=== PATIENT | female | born 1990 | race Caucasian/White ===

== ENCOUNTER 2016-10-16 11:49 | Emergency (ER) | payer OTHER ==
[~2016-10-16] VITALS: Ht 167.6 cm; Wt 88.0 kg
[~2016-10-16 11:49] MED LIST: ADAL40KI SC; INSPMPNVLG; MULT-506 PO; VENL-273 PO
[2016-10-16 11:57] VITALS: TEMP 37.1; Ht 167.6 cm; Wt 88.0 kg
[2016-10-16] MEDS ORDERED: CLON0.5T3 PO (12:07)
[2016-10-16] MEDS ORDERED: FEXO1TAB46 PO (12:07)
[2016-10-16] MEDS ORDERED: SERT50TA PO (12:07)
[2016-10-16] MEDS ORDERED: BCPILLS PO (12:07)
[2016-10-16] MEDS ORDERED: TRAZ50TA35 PO (12:07)
--- NOTE | 2016-10-16 12:42 | DIAGNOSTIC IMAGING REPORT ---
RIGHT FINGER(S) MIN 2 VIEWS ROUTINE CLINICAL HISTORY: closed index finger in car window Right trauma COMPARISON: None. DISCUSSION: The bones and joint spaces appear intact. There is no evidence of fracture, dislocation or bony disease. There is no evidence for soft tissue swelling. IMPRESSION: Negative study. The above report was generated using voice recognition software. It may contain grammatical, syntax or spelling errors. Electronically signed by: Wili Wood M.D. 10/16/2016 12:41 PM Dictated Date/Time: 10/16/2016 12:40 PM
[2016-10-16 13:04] VITALS: BP 123/85; PULSE 75; O2SAT 97
--- NOTE | 2016-10-16 17:32 | EMERGENCY ROOM VISIT NOTE ---
ED Visit Note First contact with patient: 12:18 CHIEF COMPLAINT: Right index Finger injury HISTORY OF PRESENT ILLNESS: This 26-year-old white female patient injured her right index finger about an hour ago when it was accidentally closed in an electric car window. Right-hand dominant.. There was no audible snap or crack at that time. The patient is able to straighten and flex the finger completely but it is painful. No numbness or tingling. No other fingers are involved. No prior history of significant finger injury. No treatment yet. Pain is 5/10. Her accompanies her today. REVIEW OF SYSTEM: HEENT: No dizziness, visual problems, hearing loss, or tinnitus. There is no difficulty swallowing and no oral lesions are present. LYMPH: No adenopathy. PULMONARY: No cough, shortness of breath, sputum production or hemoptysis. CARDIOVASCULAR: No chest pain, palpitations, shortness of breath or peripheral edema. GASTROINTESTINAL: No diarrhea, constipation, nausea, vomiting, or abdominal pain. GENITOURINARY: No dysuria, frequency, urgency or nocturia. NEUROLOGIC: No weakness, muscle tenderness, epilepsy or history of neurological problems. MUSCULOSKELETAL: No history of joint tenderness/swelling. No history of arthritis or arthralgias. SKIN: No rashes or lesions. PSYCHIATRIC: No history of depression or mental illness. ENDOCRINE: No history of thyroid disorders, or abnormal hair growth. PMH: Supplemental sheet was reviewed and signed. Previous surgeries: None Medical history: Significant for history of diabetes, juvenile rheumatoid arthritis Allergies: Ceclor, sulfa Current medications: Reviewed and filed in patient's chart SOCIAL HISTORY: Patient lives at home with her fianc. no tobacco use, no EtOH use. Employed. Family history: Significant for diabetes, kidney stones, and colon cancer. Parents are living. PHYSICAL EXAM: Vital Signs: Afebrile. Reviewed and filed in patient's chart. General: Well-developed, well-nourished, young white female, in obvious discomfort. No acute distress. She is sitting on a bed. Alert and oriented. Skin: Warm and dry with good turgor. No rashes or lesions. No ecchymosis or erythema. The patient is not diaphoretic. Mild dorsal abrasions present at the middle and distal phalanx. Musculoskeletal: There is no deformity of the finger. The patient is able to extend and flex the index finger at the MCP, PIP , and DIP joints. FDS and FDP function were individually confirmed. The PIP joint is not tender and extension is full and strong there. The DIP joint area is not particularly swollen but is tender. Examination of the rest of the hand and fingers is benign. Neurologic: Gross sensation is intact across each of the digits by soft touch. Capillary refill is also equal for each of the digits. Data: An x-ray of the finger does not show a fracture; the bones are normal. This was read by radiology. DIAGNOSIS: Right index Finger contusion DISCHARGE INSTRUCTIONS: Patient was educated regarding today's findings. Conservative care measures were discussed. Ice and elevate intermittently over the next 3 days, and then use moist heat. Gentle motion daily. Tylenol and ibuprofen every 6 hours as needed for discomfort. Patient may angelita tape the finger to the next finger as a biologic splint if needed. Contusion handout was provided. She was offered an AlumaFoam splint. Patient declined. She was reassured that I do not suspect dislocation, tendon rupture, or ligament rupture. Problem List Medical Problems: (1) DIAB ART WO COMPL, TYPE II OR UNSPEC TYPE, NOT UNCNTRLD Status: Chronic (2) Hx-Sulfonamides Allergy Status: Chronic (3) Long-Term (Current) Use Of Insulin Status: Chronic Current/Historical Medications Scheduled Adalimumab (Humira Pen), 40 MG SC Q2WK Control Pills ( Control Pills), 1 TAB PO DAILY Insulin Aspart (novoLOG INSULIN PUMP ), 1 EA N/A UD Sertraline (Zoloft), 75 MG PO DAILY Trazodone Hcl (Trazodone), 50 MG PO DAILY Scheduled PRN Clonazepam (Klonopin), 0.5 MG PO DAILY PRN for Anxiety Fexofenadine Hcl (Ya), 180 MG PO DAILY PRN for ALLERGIC REACTION Allergies Coded Allergies: Cefaclor (Unverified Allergy, Unknown, HIVES, 10/16/16) Sulfa Drugs (Unverified Allergy, Unknown, HIVES, 10/16/16) Vital Signs Date Time Temp Pulse Resp B/P (MAP) Pulse Ox O2 Delivery O2 Flow Rate FiO2 10/16/16 13:04 75 18 123/85 97 10/16/16 11:57 37.1 93 20 142/90 96 Room Air Departure Information Impression Primary Impression: Finger contusion Dispostion Home / Self-Care Condition GOOD Forms WORK / SCHOOL INSTRUCTIONS, HOME CARE DOCUMENTATION FORM, MOTRIN USE, TYLENOL USE, IMPORTANT VISIT INFORMATION Patient Instructions My [facility] Additional Instructions Ice and elevate frequently to reduce pain and swelling Gentle motion daily Tylenol and Motrin every 6 hours as needed for discomfort Use a splint for protection if needed
== END 2016-10-16 13:06 | disposition home or self-care (01) ==
LOC: C.EDB 11:51 → C.EDD 13:06
DX: S60.021A Contusion of right index finger without damage to nail, initial encounter (principal); V48.4XXA Person boarding or alighting a car injured in noncollision transport accident, initial encounter; E11.9 Type 2 diabetes mellitus without complications; Z79.4 Long term (current) use of insulin; Z79.899 Other long term (current) drug therapy; Z88.2 Allergy status to sulfonamides; Z88.8 Allergy status to other drugs, medicaments and biological substances

== ENCOUNTER 2017-04-13 10:48 | Emergency (ER) | payer OTHER ==
[~2017-04-13] VITALS: Ht 167.6 cm; Wt 87.6 kg
[~2017-04-13 10:48] MED LIST changes: +BCPILLS PO; +CLON0.5T3 PO; +FEXO1TAB46 PO; -MULT-506 PO; +SERT50TA PO; +TRAZ50TA35 PO; -VENL-273 PO
[2017-04-13 10:51] VITALS: TEMP 36.8; Ht 167.6 cm; Wt 87.6 kg
[2017-04-13 12:16] LABS: INFLUENZA A PCR Neg for Influ A (NEG); INFLUENZA B PCR Neg for Influ B (NEG)
[2017-04-13 12:42] VITALS: BP 109/85; PULSE 66; O2SAT 95
--- NOTE | 2017-04-13 14:37 | EMERGENCY ROOM VISIT NOTE ---
History First contact with patient: 11:01 Chief Complaint: FLU LIKE SX Stated Complaint: FLU-LIKE FEVER, SORE THROAT, ACHES, COUGH, CONGEST History of Present Illness The patient is a 26 year old female who presents to the Emergency Room with complaints of flulike symptoms for the past 48 hours. The patient reports that she developed muscle aches initially. By yesterday, she had developed a sore throat and mild nonproductive cough. She has also noticed fatigue and nasal congestion. The patient developed a fever last night of 100F. When she awoke this morning, her temperature was 100.9F. The patient has taken Tylenol twice this morning. 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 The patient did receive her influenza immunization this past fall. She rates her overall discomfort a 6 out of 10. She denies any abdominal pain, urinary symptoms, diarrhea, headache or neck pain. The patient is a type 2 diabetes patient. She reports that her blood glucose levels have been running in a manageable range. Review of Systems 10 system review was performed and was negative except for pertinent positives and negatives as indicated in history of present illness Past Medical/Surgical History Medical Problems: (1) DIAB ART WO COMPL, TYPE II OR UNSPEC TYPE, NOT UNCNTRLD (2) Hx-Sulfonamides Allergy (3) Long-Term (Current) Use Of Insulin Family History FH: cancer FH: diabetes mellitus FH: kidney disease Social History Smoking Status: Never Smoker Alcohol Use: none Marital Status: single Housing Status: lives with roommate Occupation Status: employed Current/Historical Medications Scheduled Adalimumab (Humira Pen), 40 MG SC Q2WK Control Pills ( Control Pills), 1 TAB PO DAILY Insulin Aspart (novoLOG INSULIN PUMP ), 1 EA N/A UD Sertraline (Zoloft), 75 MG PO DAILY Trazodone Hcl (Trazodone), 50 MG PO DAILY Scheduled PRN Clonazepam (Klonopin), 0.5 MG PO DAILY PRN for Anxiety Fexofenadine Hcl (Ya), 180 MG PO DAILY PRN for ALLERGIC REACTION Physical Exam Vital Signs Date Time Temp Pulse Resp B/P (MAP) Pulse Ox O2 Delivery O2 Flow Rate FiO2 04/13/17 12:42 66 18 109/85 95 04/13/17 10:51 36.8 97 18 132/87 96 Room Air Physical Exam CONSTITUTIONAL: Healthy and well nourished. Alert and oriented X 3 with positive affect. She does not appear acutely toxic. HEENT: Normocephalic, atraumatic. Pupils equal, round and reactive. Ears and nares are clear except for mild clear rhinorrhea. No scleral icterus or conjunctival injection/pallor. OROPHARYNX: Minimal posterior pharyngeal erythema without tonsillar hypertrophy or exudates. NECK: Full active range of motion without discomfort. No nuchal rigidity or meningeal signs. RESPIRATORY: Clear to auscultation bilaterally with no wheezing, crackles, rhonchi or stridor. CARDIOVASCULAR: Regular rate and rhythm with no murmurs, rubs or gallops. GASTROINTESTINAL: Bowel sounds present in all quadrants. Soft and nontender to palpation. MUSCULOSKELETAL: Full range of motion of all joints without discomfort. INTEGUMENTARY: No rash or other significant dermatologic conditions noted. NEUROLOGIC: No focal neurologic deficits noted. Medical Decision & Procedures Laboratory Results Test 04/13/17 11:18 Influenza Type A (RT-PCR) Neg for Influ A (NEG) Influenza Type B (RT-PCR) Neg for Influ B (NEG) Influenza screen was ED Course Patient history and physical exam were performed. Nurse's notes were reviewed. Vital signs were reviewed. The patient is currently afebrile and not tachycardic. She is also normotensive with a normal O2 saturation on room air. The patient refused any ibuprofen. PCR influenza screen was negative. The patient was advised that her symptoms are likely secondary to a viral upper respiratory infection. She was encouraged to alternate ibuprofen and Tylenol as needed for pain and fever. Additional instructions for symptomatic relief were provided. She was encouraged to follow-up with her PCP if symptoms are not improving within the next week. She may also return to the emergency department as needed for any significantly worsening symptoms. The patient was happy with plan of care, and voiced understanding of all discharge instructions. Medical Decision Medication Reconcilliation Current Medication List: was personally reviewed by me Blood Pressure Screening Patient's blood pressure: Normal blood pressure Impression Primary Impression: Viral upper respiratory infection Departure Information Referrals No Doctor, Assigned (PCP) Patient Instructions My [facility]
== END 2017-04-13 12:43 | disposition home or self-care (01) ==
LOC: C.EDB 10:50 → C.EDC 12:43
DX: J06.9 Acute upper respiratory infection, unspecified (principal); E11.9 Type 2 diabetes mellitus without complications; Z88.2 Allergy status to sulfonamides; Z79.4 Long term (current) use of insulin; Z80.9 Family history of malignant neoplasm, unspecified; Z83.3 Family history of diabetes mellitus; Z84.1 Family history of disorders of kidney and ureter; Z79.3 Long term (current) use of hormonal contraceptives; Z79.899 Other long term (current) drug therapy